=== PATIENT | male | born 1955 | race Caucasian/White ===

== ENCOUNTER 2019-05-27 06:46 | Emergency (ER) | payer OTHER, MEDICAID ==
[~2019-05-27] VITALS: Ht 167.6 cm; Wt 81.6 kg
--- NOTE | 2019-05-27 06:46 | NUR ---
Placed in room 4 . Placed on shrimp trawler, blood pressure machine and pulse oximeter. To gown for exam. Side rails up.
[2019-05-27 06:50] VITALS: BP_SYST 105
--- NOTE | 2019-05-27 06:50 | NUR ---
ER Dr. Meza at bedside examining patient.
--- NOTE | 2019-05-27 06:50 | NUR ---
BROUGHT IN BY AMBULANCE FROM A [facility] FOR LOW O2 SATURATION AND NO URINE OUTPUT. PLACED IN BED 4. PT.ALERT,NOT IN ACUTE DISTRESS. NO PAIN OR DISCOMFORT NOTED. BREAHING EQUAL AND UNLABORED. SAO2=94% ON 2 LPM O2 VIA NC. AT BEDSIDE TO EVALUATE PT.
[2019-05-27] MEDS ORDERED: NACL 0.9% 1,000 ML IV ONE (06:56)
--- NOTE | 2019-05-27 07:03 | NUR ---
X-ray tech at bedside as ordered by Dr. Meza. Patient tolerated the procedure well.
--- NOTE | 2019-05-27 07:10 | NUR ---
ENDORSED CARE TO KAM DUGGAN.
--- NOTE | 2019-05-27 07:20 | NUR ---
# 20 gauge angiocath placed to right wrist. Use of asceptic technique. Opsite placed over site. Blood return noted. Blood for lab drawn from site. Flushed with 10 cc of normal saline. No evidence of infiltration noted. Patient tolerated well.
--- NOTE | 2019-05-27 07:21 | NUR ---
Swabbed for MRSA. Dropped off at the lab.
--- NOTE | 2019-05-27 07:40 | NUR ---
# 16 FR In and Out catheter with use of sterile technique. Immediate return of 1000 ml clear dark yellow urine noted. Urine sample collected and sent to lab. Pt tolerated procedure well. Patient unable to toilet self.
--- NOTE | 2019-05-27 07:42 | NUR ---
MARTA Mathews at bedside examining patient.
--- NOTE | 2019-05-27 07:46 | NUR ---
Swabbed for Influenza as ordered by Dr. Mathews. Dropped off specimen at the lab.
[2019-05-27 07:53] LABS: BASOPHILS % (AUTO) 0.7 % (0.0-2.0); EOSINOPHILS # (AUTO) 0.2 K/uL (0.0-0.4); EOSINOPHILS % (AUTO) 2.8 % (0.0-4.0); HEMATOCRIT 36.2 % (36-54); LYMPHOCYTES # (AUTO) 1.4 K/uL (1.0-5.5); LYMPHOCYTES % (AUTO) 21.8 % (20.5-51.5); MEAN CORPUSCULAR HEMOGLOBIN 31 pg (27-31); MEAN CORPUSCULAR HGB CONC 33 % (32-36); MEAN CORPUSCULAR VOLUME 94 fL (79.0-98.0); MONOCYTES # (AUTO) 0.7 K/uL (0.0-1.0); MONOCYTES % (AUTO) 11.1 % (1.7-9.3); NEUTROPHILS # (AUTO) 3.9 K/uL (1.8-7.7); NEUTROPHILS % (AUTO) 63.6 % (40.0-70.0); PLATELET COUNT (AUTO) 316 K/uL (130-430); RED BLOOD CELL COUNT(AUTO) 3.85 MIL/uL (4.2-6.2); RED CELL DISTRIBUTION WIDTH 13.9 % (9.0-15.0); WHITE BLOOD COUNT (AUTO) 6.2 K/uL (4.8-10.8)
[2019-05-27 08:00] LABS: CALCIUM 8.9 mg/dL (8.4-11.0); CREATININE 1.53 mg/dL (0.55-1.30); POTASSIUM 4.3 mmol/L (3.5-5.1)
[2019-05-27 08:03] LABS: BILIRUBIN,URINE NEGATIVE (NEGATIVE); BLOOD, URINE 2+ (NEGATIVE); CLARITY/URINE CLEAR (CLEAR); COLOR,URINE YELLOW (YELLOW); GLUCOSE,URINE NEGATIVE (NEGATIVE); KETONES,URINE NEGATIVE (NEGATIVE); LEUKOCYTE ESTERASE ,URINE NEGATIVE (NEGATIVE); NITRITE, URINE NEGATIVE (NEGATIVE); PH,URINE 5.5 (5.0-8.0); PROTEIN URINE NEGATIVE (NEGATIVE); UROBILINOGEN,URINE 0.2 (0.2-1.0)
[2019-05-27 08:06] LABS: ALBUMIN 2.5 g/dL (3.4-4.8); TOTAL BILIRUBIN 0.8 mg/dL (0.0-1.0)
[2019-05-27] MEDS ORDERED: LORA-258 GT (08:14)
[2019-05-27] MEDS ORDERED: BENZ1TAB76 GT (08:14)
[2019-05-27] MEDS ORDERED: CARB1TAB21 GT (08:14)
[2019-05-27] MEDS ORDERED: AMIN30LI2 GT (08:14)
[2019-05-27] MEDS ORDERED: POLY17PO4 GT (08:14)
[2019-05-27] MEDS ORDERED: QUET200T GT (08:14)
[2019-05-27] MEDS ORDERED: IPRA4AER INH (08:14)
[2019-05-27] MEDS ORDERED: QUET50TA GT (08:14)
[2019-05-27] MEDS ORDERED: MULT-1016 GT (08:14)
[2019-05-27] MEDS ORDERED: IPRATROPIUM/ALBUTEROL SULFATE 3 ML AMPUL.NEB (DUONEB) INH ONE ×2 (08:15→09:45)
--- NOTE | 2019-05-27 08:17 | NUR ---
RT at bedside administering breathing treatment as ordered by Dr. Mathews. Patient tolerated the treatment well.
--- NOTE | 2019-05-27 08:46 | NUR ---
Patient is resting comfortably in bed, respirations even and unlabored. [employer] linux systems administrator at bedside.
[2019-05-27 08:54] LABS: BACTERIA,URINE MANY /HPF (None Seen); MUCUS,URINE 1+ /LPF (None Seen); RBC,URINE 20-50 /HPF (0-3)
[2019-05-27 08:55] LABS: URINE AMORPHOUS URATE 1+ /HPF (None Seen)
--- NOTE | 2019-05-27 09:34 | NUR ---
ER Dr. Mathews at bedside giving discharge instructions to the patient and the facility small business representative.
--- NOTE | 2019-05-27 09:39 | NUR ---
RT at bedside administering breathing treatment as ordered by Dr. Mathews. Patient tolerated the treatment well.
[2019-05-27] MEDS ORDERED: TAMSULOSIN HCL 0.4 MG CAP PO ONE (09:45)
--- NOTE | 2019-05-27 09:45 | NUR ---
Called pharmacy and spoke with chris regarding Flomax 0.4mg.
--- NOTE | 2019-05-27 10:03 | NUR ---
Administered Tamsulosin 0.4mg via GT as ordered by Dr. Mathews. Patient tolerated the medication well. See eMAR for details.
[2019-05-27 10:20] VITALS: BP_SYST 111
--- NOTE | 2019-05-27 10:21 | NUR ---
Patient and customer operations representative given written and verbal discharge instructions and verbalizes understanding. ER MD discussed with patient the results and treatment provided. Patient in stable condition. ID arm band removed. IV catheter removed intact and dressing applied, no active bleeding. Rx of Flomax given. Patient educated on pain management and to follow up with PMD. Pain Scale 0/10. Opportunity for questions provided and answered. Medication side effect fact sheet provided.
--- NOTE | 2019-05-29 16:47 | NUR ---
Nurse at [facility] notified of positive urine culture and susceptibility list.
== END 2019-05-27 10:21 | disposition home or self-care (01) ==
LOC: SED 06:46
DX: J44.9 Chronic obstructive pulmonary disease, unspecified (principal); R33.9 Retention of urine, unspecified; I10 Essential (primary) hypertension; F20.9 Schizophrenia, unspecified
CPT/HCPCS: 36415; 36600; 51701; 71045; 80053; 81000; 82803; 83605; 83880; 84484; 85025; 85730; 86710; 87040; 87086; 87186; 94640; 94760; 99284; J7030; J7620; 93005

== ENCOUNTER 2019-06-01 09:53 | Emergency (ER) | payer OTHER, MEDICAID ==
[~2019-06-01] VITALS: Ht 185.4 cm; Wt 106.6 kg
[~2019-06-01 09:53] MED LIST: AMIN30LI2 GT; BENZ1TAB76 GT; CARB1TAB21 GT; IPRA4AER INH; LORA-258 GT; MULT-1016 GT; POLY17PO4 GT; QUET200T GT; QUET50TA GT
[2019-06-01 11:02] VITALS: BP_SYST 95
--- NOTE | 2019-06-01 11:05 | NUR ---
Placed in room 05 . Placed on air sampling and monitoring, blood pressure machine and pulse oximeter. To gown for exam. Side rails up.
--- NOTE | 2019-06-01 11:08 | NUR ---
PATIENT PRESENTS TO THE ER WITH HX OF PARTIAL WITHDRAWING OF ANCHORED HERNANDEZ CATHETER TODAY WHILE DRESSING PATIENT; WITH A LARGE AMOUNT OF BLEEDING IN THE CATHETER BAG; NO OTHER TRAUMA, NO OTHER REMARKABLE S/S; PATIENT TO ER #5 AT 1049
--- NOTE | 2019-06-01 11:08 | NUR ---
ER Dr. Flores at bedside examining patient.
[2019-06-01] MEDS ORDERED: CRAN237L GT (11:16)
--- NOTE | 2019-06-01 11:30 | NUR ---
Patient brought in by caregiver for hematuria secondary to tobias catheter trauma. Per report, patient stood up and tried pulling tobias catheter out. Patient is confused and disoriented, with medical history of HTN, COPD, impulse control, Parkinsons, anxiety, aspiration pneumonia, and falls. No signs or symptoms of acute distress noted.
--- NOTE | 2019-06-01 11:58 | NUR ---
# 16 FR Tobias catheter with use of sterile technique. Immediate return of 50 cc bloody urine noted. Bedside drainage bag placed below level of bladder. Urine sample collected and sent to lab. Pt tolerated procedure well. Patient arrived with otbias in place, changed due to standard of practice prior to admission. Patient unable to toilet self.
[2019-06-01 14:02] LABS: BASOPHILS % (AUTO) 0.6 % (0.0-2.0); EOSINOPHILS # (AUTO) 0.1 K/uL (0.0-0.4); EOSINOPHILS % (AUTO) 1.8 % (0.0-4.0); HEMATOCRIT 36.8 % (36-54); HEMOGLOBIN 12.1 g/dL (14.0-18.0); LYMPHOCYTES # (AUTO) 1.1 K/uL (1.0-5.5); LYMPHOCYTES % (AUTO) 19.1 % (20.5-51.5); MEAN CORPUSCULAR HEMOGLOBIN 31 pg (27-31); MEAN CORPUSCULAR HGB CONC 33 % (32-36); MEAN CORPUSCULAR VOLUME 94 fL (79.0-98.0); MONOCYTES # (AUTO) 0.9 K/uL (0.0-1.0); MONOCYTES % (AUTO) 16.1 % (1.7-9.3); NEUTROPHILS # (AUTO) 3.6 K/uL (1.8-7.7); NEUTROPHILS % (AUTO) 62.4 % (40.0-70.0); PLATELET COUNT (AUTO) 278 K/uL (130-430); RED BLOOD CELL COUNT(AUTO) 3.94 MIL/uL (4.2-6.2); RED CELL DISTRIBUTION WIDTH 13.7 % (9.0-15.0); WHITE BLOOD COUNT (AUTO) 5.8 K/uL (4.8-10.8)
[2019-06-01 14:15] LABS: ALANINE AMINOTRANSFERASE 22 U/L (12-78); ALBUMIN 2.2 g/dL (3.4-4.8); ASPARTATE AMINOTRANSFERASE 17 U/L (10-37); CALCIUM 9.2 mg/dL (8.4-11.0); CHLORIDE 99 mmol/L (98-107); CREATININE 0.92 mg/dL (0.55-1.30); GLUCOSE 87 mg/dL (70-99); SODIUM SERUM 131 mmol/L (136-145); TOTAL BILIRUBIN 0.4 mg/dL (0.0-1.0); UREA NITROGEN, BLOOD 24 mg/dL (8-21)
[2019-06-01 14:17] LABS: ANION GAP < 3 (5-15); GFR AFRICAN AMERICAN 107 mL/min (>90)
[2019-06-01 16:15] VITALS: BP_SYST 105
--- NOTE | 2019-06-01 16:15 | NUR ---
Patient given written and verbal discharge instructions and verbalizes understanding. ER MD Dr. Flores discussed with patient the results and treatment provided. Patient in stable condition. ID arm band removed. IV catheter removed intact and dressing applied, no active bleeding. No Rx given. Patient's news library director educated on Coker catheter care and to follow up with PMD. Pain Scale 0/10. Opportunity for questions provided and answered. Medication side effect fact sheet provided.
== END 2019-06-01 16:15 | disposition home or self-care (01) ==
LOC: SED 09:53
DX: R31.0 Gross hematuria (principal); I10 Essential (primary) hypertension; J44.9 Chronic obstructive pulmonary disease, unspecified; F41.9 Anxiety disorder, unspecified; Z79.899 Other long term (current) drug therapy
CPT/HCPCS: 36415; 80053; 85025; 99283; J7030

== ENCOUNTER 2019-06-02 20:16 | Observation (INO) | payer OTHER, MEDICAID ==
[~2019-06-02] VITALS: Ht 182.9 cm; Wt 90.7 kg
[~2019-06-02 20:16] MED LIST changes: +CRAN237L GT
[2019-06-02 20:23] VITALS: BP_SYST 106
--- NOTE | 2019-06-02 20:23 | NUR ---
Patient to ER bed 3 to gown for evaluation. Side rails up.
--- NOTE | 2019-06-02 20:45 | NUR ---
Pt came to the ED for g-tube replacement from assisted living. AOx1 which is pts baseline. Per music assistant, g-tube was removed at 1400. Pt was seen 06/01/19 and dx with COPD and urinary retention. No other complaints/injuries noted. Will cont. to monitor.
--- NOTE | 2019-06-02 21:00 | NUR ---
ER at bedside examining patient.
--- NOTE | 2019-06-02 22:04 | NUR ---
Medication reconciliation completed with information provided by patients paperwork. Any prior medication reconciliation on file was reviewed and corrected.
--- NOTE | 2019-06-02 23:18 | NUR ---
[facility] [id number]
--- NOTE | 2019-06-03 00:22 | NUR ---
Pt resting comfortably in bed, no signs of acute distress. Will cont. to monitor.
--- NOTE | 2019-06-03 01:12 | NUR ---
Pt resting comfortably in bed, no signs of acute distress. Will cont. to monitor.
--- NOTE | 2019-06-03 02:08 | NUR ---
Patient will be admitted to care of Dr. Urbina. Admitted to MS unit. Will go to room 135. Belongings list completed. Complete and up to date summary report printed. SBAR report to be given at bedside with opportunity for questions.
--- NOTE | 2019-06-03 02:25 | NUR ---
Bright red blood noted on diaper from tobias placement. Pt came into ED with a [address] Removed tobias. CN with myself at bedside.
--- NOTE | 2019-06-03 02:30 | NUR ---
# 16 coude FR Tobias catheter with use of sterile technique. Immediate return of 50 cc straw urine noted. Bedside drainage bag placed below level of bladder. Urine sample collected and sent to lab. Pt tolerated procedure well. Patient arrived with tobias in place, changed due to standard of practice prior to admission. Patient unable to toilet self.
--- NOTE | 2019-06-03 03:34 | NUR ---
Spoke to Khadra in regards to code status. SHe states "pt is a [place]. She confirmed he is a full code."
--- NOTE | 2019-06-03 03:48 | NUR ---
ADMISSION NOTE Received patient from ER via [facility], received report from URBAN DOMÍNGUEZ. Patient admitted with diagnosis of GASTROINTESTINAL MALFUNCTION. Patient oriented to hospital routine, call light, toileting and safety precaution.
[2019-06-03 03:59] VITALS: BP_SYST 98
[2019-06-03] MEDS: D5/0.45 NS 1,000 ML IV SCH ×3 (04:15→23:00)
--- NOTE | 2019-06-03 04:33 | NUR ---
GI Consultation Paged Reason for consult: G-tube Malfunction Was consult called: Yes Person who was notified: Anjali Consulting Physician: Dr Escalona Director Dental Services Director Dental Services Specialty: Gastroenterology Ordered By: Dr Angelia Urbina
--- NOTE | 2019-06-03 05:20 | NUR ---
RN Rounds Patient is resting in bed, eyes closed, no signs of acute distress, even and unlabored breathing on room air, IV fluids infusing per MD order, patent/benign, Coker catheter draining to gravity. Safety and fall precautions in place, bed locked and in lowest position, bed alarm on, bed close to nursing station, three side rails up, call light with patient, will continue to monitor.
--- NOTE | 2019-06-03 06:59 | NUR ---
Closing Note Patient is resting in bed, awake, no signs of acute distress, even and unlabored breathing on room air, IV fluids infusing per MD order, patent/benign, Coker catheter draining to gravity. All safety and fall precautions in place, bed locked and in lowest position, bed alarm on, bed close to nursing station, three side rails up, call light with patient, will endorse care to dayshift RN.
[2019-06-03 08:00] VITALS: BP_SYST 115
[2019-06-03 13:30] VITALS: BP_SYST 109
[2019-06-03] MEDS ORDERED: CEFAZOLIN 1 GM IVPB PREMIX 50 ML IV ONE (13:30)
[2019-06-03] MEDS: MEPERIDINE HCL/PF 100 MG/ML AMP ONE ×2 (15:08→15:12)
[2019-06-03] MEDS: MIDAZOLAM HCL 5 MG/5 ML VIAL ONE ×3 (15:10→15:16)
[2019-06-03] MEDS ORDERED: PANTOPRAZOLE SODIUM 40 MG TAB GT ONE (15:30)
--- NOTE | 2019-06-03 16:00 | NUR ---
Mold Designer: met with pt. to conduct a DCPA. CRYPTOLOGICAL TECHNICIAN went to pts. room. Rn. Barbosa informed CRYPTOLOGICAL TECHNICIAN that pt. went to get a procedure done and is not in his room. She added, pt. is not lucid and will not be able to carry on a conversation. Pt. is a kinsey of the [facility] and is a [facility] client. CRYPTOLOGICAL TECHNICIAN called pts. brother listed on the facesheet, Clinton Braxton, who was able to fill in the blanks. CRYPTOLOGICAL TECHNICIAN was able to complete a DCPA. Brother is local and is able to check up on pt. He stated pt. will return to home in [place]. Brother also stated he is the DPOA, but does not have the paperwork at hand stating it may have been lost during the divorce. When asked about the need to ever access any mental health services, brothjavier Alonzo stated pt. has never had to do so. Pt just has a loss in his mond due to being mentally challenged. CRYPTOLOGICAL TECHNICIAN will remain available as needed.
--- NOTE | 2019-06-03 16:02 | NUR ---
Dietitian Recommendations * Consider Jevity 1.2 TF formula (continuous infusion) if/when medically appropriate LP, RD Please refer to Nutrition Assessment for details. Signed: 06/03/19 at 1603 by Gail OLVERA <Co-Signature Required> Co-Signed: 06/03/19 at [address] Addendum: 06/03/19 at 1603 by Gail OLVERA Amended: Links added.
[2019-06-03] MEDS ORDERED: ACETAMINOPHEN 325 MG TABLET GT PRN (17:15)
[2019-06-03] MEDS ORDERED: POLYETHYLENE GLYCOL 3350, 17 GM/ POWD.PACK GT SCH (17:15)
[2019-06-03] MEDS ORDERED: ONDANSETRON HCL 4 MG/2 ML VIAL IVP PRN (17:15)
[2019-06-03] MEDS ORDERED: HYDROcodone/ACETAMIN 10-325 MG TAB GT PRN (17:15)
[2019-06-03] MEDS ORDERED: HYDROcodone/ACETAMIN 5-325 MG TAB (NORCO/ VICODIN) GT PRN (17:15)
[2019-06-03 17:59] VITALS: BP_SYST 129
[2019-06-03] MEDS ORDERED: IPRATROPIUM/ALBUTEROL SULFATE 3 ML AMPUL.NEB (DUONEB) INH SCH (19:00)
--- NOTE | 2019-06-03 19:06 | NUR ---
late entry, patient taken to Gi Lab fr peg placement. Vss no acute cardiac or resp dsitress. Patient returned @ 1530. peg in place with abdominal binder in place cover g-tube. All in tact. patient alert no s&S of distress.
--- NOTE | 2019-06-03 19:30 | NUR ---
OPENING NOTES Pt and endorsement received from day shift nurse. Pt is resting in bed with both eyes closed, with visible chest rise and fall with non-labored breathing noted. Pt on IVF with D5,0.45NS at 100ml/hr and infusing well on right hand G20. Pt on tobias catheter with yellow urine noted in the bag and hanged below bladder level. No moaning or grimacing noted. No signs of acute distress or SOB noted. Safety precautions in place with 3 side rails up, wheels locked, bed alarm on and in lowest level. Call light with pt. Will continue to monitor.
[2019-06-03] MEDS ORDERED: NON-FORMULARY MEDICATION (Amino Acids/Protein Hydrolys (Pro-Stat Liquid) 30 ML) GT SCH (21:00)
[2019-06-03] MEDS ORDERED: CRANBERRY JUICE GT SCH (21:00)
[2019-06-03] MEDS ORDERED: [UNRECOGNIZED DRUG - OTHER] GT SCH (21:00)
[2019-06-03 21:09] VITALS: BP_SYST 129
[2019-06-03] MEDS ORDERED: NORMAL SALINE 5 ML DISP.SYRIN IVF SCH (22:00)
[2019-06-03 22:02] VITALS: BP_SYST 113
[2019-06-03] MEDS: QUEtiapine FUMARATE 25 MG TABLET GT SCH (22:03)
[2019-06-03] MEDS: BENZTROPINE MESYLATE 1 MG TABLET GT SCH (22:03)
[2019-06-03] MEDS: NORMAL SALINE 5 ML DISP.SYRIN IVF SCH (22:04)
[2019-06-03] MEDS: QUEtiapine FUMARATE 100 MG TABLET GT SCH (22:04)
--- NOTE | 2019-06-03 22:05 | NUR ---
MED PASS Assessed bowel sounds and is active upon auscultation. Residual is 0. All due meds given and pt tolerated well. Aspiration precaution maintained with head elevated at 45 degrees. Started tube feeding with Jevity 1.5ml at 50ml/hr as ordered. No complains of pain and no signs of acute distress noted. Encouraged to use call light when needed. Safety precautions in place and call light with pt. Will continue to monitor.
[2019-06-04 00:09] VITALS: BP_SYST 106
--- NOTE | 2019-06-04 00:30 | NUR ---
ROUNDS Pt is resting in bed with both eyes closed, with visible chest rise and fall with non-labored breathing noted. IVF and tube feeding are infusing well. No complains of pain and no signs of acute distress or SOB noted. Safety precautions in place and call light with pt. Will continue to monitor.
--- NOTE | 2019-06-04 03:35 | NUR ---
ROUNDS Pt is resting in bed with both eyes closed, with visible chest rise and fall with non-labored breathing noted. Pt is easily arousable. IVF and G-tube feeding are infusing well. No signs of acute distress or SOB noted. No needs at this time. Safety precautions in place and call light with pt. Will continue to monitor.
[2019-06-04] MEDS: D5/0.45 NS 1,000 ML IV SCH (03:42)
[2019-06-04] MEDS: NORMAL SALINE 5 ML DISP.SYRIN IVF SCH ×2 (05:01→13:26)
--- NOTE | 2019-06-04 06:19 | NUR ---
CLOSING NOTES Pt is resting in bed with both eyes closed, with visible chest rise and fall with non-labored breathing noted. IVF and G-tube feeding are infusing well. Kept tobias bag hanged below bladder level. No complains of pain at this time. No signs of acute distress or SOB noted. All needs attended throughout the shift. Safety precautions maintained with 3 side rails up, wheels locked, bed alarm on and in lowest level. Call light with pt. Will endorse to day shift nurse.
[2019-06-04 07:38] LABS: BASOPHILS % (AUTO) 0.7 % (0.0-2.0); EOSINOPHILS # (AUTO) 0.2 K/uL (0.0-0.4); EOSINOPHILS % (AUTO) 5.4 % (0.0-4.0); HEMATOCRIT 32.1 % (36-54); HEMOGLOBIN 10.6 g/dL (14.0-18.0); LYMPHOCYTES # (AUTO) 1.2 K/uL (1.0-5.5); LYMPHOCYTES % (AUTO) 27.2 % (20.5-51.5); MEAN CORPUSCULAR HEMOGLOBIN 31 pg (27-31); MEAN CORPUSCULAR HGB CONC 33 % (32-36); MEAN CORPUSCULAR VOLUME 94 fL (79.0-98.0); MONOCYTES # (AUTO) 0.8 K/uL (0.0-1.0); MONOCYTES % (AUTO) 17.4 % (1.7-9.3); NEUTROPHILS # (AUTO) 2.1 K/uL (1.8-7.7); NEUTROPHILS % (AUTO) 49.3 % (40.0-70.0); PLATELET COUNT (AUTO) 242 K/uL (130-430); RED BLOOD CELL COUNT(AUTO) 3.42 MIL/uL (4.2-6.2); RED CELL DISTRIBUTION WIDTH 13.7 % (9.0-15.0); WHITE BLOOD COUNT (AUTO) 4.3 K/uL (4.8-10.8)
[2019-06-04 08:00] VITALS: BP_SYST 95
--- NOTE | 2019-06-04 08:00 | NUR ---
Note Pt resting in bed with IV in right hand intact and patent infusing IVF's well. GT feedings infusing well - tubing intact and patent at this time. No needs noted. No SOB/resp distress or pain/discomfort noted at this time. Pt next to nurses' station for close observation for needs and care. Call light within reach.
[2019-06-04 08:03] LABS: CALCIUM 8.4 mg/dL (8.4-11.0); CREATININE 0.82 mg/dL (0.55-1.30); POTASSIUM 3.9 mmol/L (3.5-5.1)
[2019-06-04] MEDS ORDERED: CARBIDOPA/LEVODOPA 25/100 MG TABLET GT SCH (09:00)
[2019-06-04] MEDS ORDERED: LORazepam 1 MG TABLET GT SCH (09:00)
[2019-06-04] MEDS ORDERED: MULTIVITS,CA,MINERALS/IRON/FA 1 TABLET GT SCH (09:00)
[2019-06-04] MEDS ORDERED: PANTOPRAZOLE SODIUM 40 MG TAB GT SCH (09:00)
--- NOTE | 2019-06-04 09:00 | NUR ---
Note Dr Casper at bedside assessing pt at this time. Pt denies any needs at this time. Call light within reach.
[2019-06-04] MEDS: BENZTROPINE MESYLATE 1 MG TABLET GT SCH (09:02)
[2019-06-04] MEDS: QUEtiapine FUMARATE 100 MG TABLET GT SCH (09:03)
[2019-06-04] MEDS: QUEtiapine FUMARATE 25 MG TABLET GT SCH (09:04)
[2019-06-04 11:28] VITALS: BP_SYST 94
--- NOTE | 2019-06-04 12:30 | NUR ---
Note Pt resting in bed with HOB at 60' all shift. GT feedings infusing well. No needs noted at this time. Call light within reach.
[2019-06-04 13:57] VITALS: BP_SYST 101
--- NOTE | 2019-06-04 14:53 | NUR ---
SHELTER WAS CALLED, RE: INFORM PT'S ORDER TO RETURN TO THE FACILITY. SPOKE TO SIMONA. ARRANGED WITH [facility] TO TAKE PT BACK .TO [address], [place] [address]. THERAPEUTIC SALES SPECIALIST TIME IS 1600. SPOKE TO
--- NOTE | 2019-06-04 15:00 | NUR ---
Note Spoke to Kaylie POLLACK at [facility] - gave report and answered questions/concerns at 1440. [place] calling for ambulance for pickup.
[2019-06-04 15:25] VITALS: BP_SYST 100
--- NOTE | 2019-06-04 16:00 | NUR ---
Note Pt was dressed in orange gown and sheet. All belongings were packed in bag. Pt's IV in right hand was dc'd - site benign at this time. Pt has had his abdominal binder on at all shift. Coker catheter was emptied and still intact. Pt was checked on q1' and PRN all shift for needs and care. Pt stable. Pt has not been pulling or tugging on Coker catheter or IV tubing all shift. Staff checked side table and drawers for belongings. Call light within reach. Discharge packet ready and at nurses' station.
--- NOTE | 2019-06-04 16:20 | NUR ---
Note Report given to ambulance EMT and pt off the floor via gurney with all belongings, discharge paperwork and has abdominal binder on. Pt stable at this time. No pain/SOB noted all shift.
== END 2019-06-04 16:20 ==
LOC: SED 20:16 → SMU 06-03 02:43 → INTOOBSV 06-03 02:43 → SMU 06-03 03:01
PROVIDERS: ADMIT Preventive Medicine Preventive Medicine/Occupational Environmental Medicine; ATTEND Preventive Medicine Preventive Medicine/Occupational Environmental Medicine
DX: K94.23 Gastrostomy malfunction (principal); J44.9 Chronic obstructive pulmonary disease, unspecified; I10 Essential (primary) hypertension; F20.9 Schizophrenia, unspecified; F41.9 Anxiety disorder, unspecified; R13.10 Dysphagia, unspecified; R33.9 Retention of urine, unspecified; F79 Unspecified intellectual disabilities; G20 Parkinson's disease; D72.819 Decreased white blood cell count, unspecified; D64.9 Anemia, unspecified; R73.9 Hyperglycemia, unspecified; K22.10 Ulcer of esophagus without bleeding; K26.9 Duodenal ulcer, unspecified as acute or chronic, without hemorrhage or perforation; Z79.899 Other long term (current) drug therapy; K29.80 Duodenitis without bleeding
CPT/HCPCS: 36415; 43246; 51702; 80048; 85025; 87081; 88305; 88312; 88313; 94640; 94760; 96365; 99218; 99285; G0378 ×3; J0690; J2175; J2250; J7620; L8699

== ENCOUNTER 2019-10-10 00:01 | Inpatient (IN) | payer OTHER, MEDICAID, SELFPAY ==
[2019-10-10] VITALS (28 sets, daily range): BP systolic 94–154
[~2019-10-10] VITALS: Ht 177.8 cm; Wt 99.8 kg
[2019-10-10 00:55] LABS: CALCIUM 9.2 mg/dL (8.4-11.0); CREATININE 3.85 mg/dL (0.55-1.30); POTASSIUM 5.4 mmol/L (3.5-5.1)
[2019-10-10 00:59] LABS: HEMOGLOBIN 12.5 g/dL (14.0-18.0); MEAN CORPUSCULAR HEMOGLOBIN 30 pg (27-31); MEAN CORPUSCULAR HGB CONC 34 % (32-36); MEAN CORPUSCULAR VOLUME 87 fL (79.0-98.0); PLATELET COUNT (AUTO) 144 K/uL (130-430); RED BLOOD CELL COUNT(AUTO) 4.24 MIL/uL (4.2-6.2); RED CELL DISTRIBUTION WIDTH 15.5 % (9.0-15.0); WHITE BLOOD COUNT (AUTO) 9.8 K/uL (4.8-10.8)
[2019-10-10] MEDS ORDERED: ACETAMINOPHEN 650 MG SUPP.RECT RC ONE (01:00)
[2019-10-10 01:01] LABS: ALBUMIN 2.2 g/dL (3.4-4.8); TOTAL BILIRUBIN 0.4 mg/dL (0.0-1.0)
[2019-10-10 01:03] LABS: INR 1.1 (0.80-1.20); PROTHROMBIN TIME 10.6 SECS (9.5-12.5)
[2019-10-10 01:11] LABS: BILIRUBIN,URINE 1+ (NEGATIVE); CLARITY/URINE CLOUDY (CLEAR); COLOR,URINE RED (YELLOW); GLUCOSE,URINE TRACE (NEGATIVE); KETONES,URINE NEGATIVE (NEGATIVE); LEUKOCYTE ESTERASE ,URINE 2+ (NEGATIVE); NITRITE, URINE NEGATIVE (NEGATIVE); PH,URINE 8.5 (5.0-8.0); PROTEIN URINE NEGATIVE (NEGATIVE)
[2019-10-10 01:14] LABS: BLOOD, URINE 3+ (NEGATIVE)
[2019-10-10] MEDS ORDERED: NACL 0.9% 1,000 ML IV ONE ×4 (01:15→06:00)
[2019-10-10] MEDS ORDERED: PIPERACILLIN/TAZO 3.375 GM in NS 50 ML IV ONE (01:15)
[2019-10-10 01:36] LABS: BACTERIA,URINE MODERATE /HPF (None Seen); RBC,URINE >100 /HPF (0-3); WBC,URINE 20-50 /HPF (0-3)
[2019-10-10] MEDS ORDERED: PIPERACILLIN/TAZOBACTAM 3.375 GM/VIAL (ZOSYN) IV ONE (01:42)
[2019-10-10] MEDS ORDERED: SODIUM POLYSTYRENE SULFONATE 15 GM/60 ML UDBTL GT ONE (01:45)
[2019-10-10 01:47] LABS: BAND % (MANUAL) 36 % (0-6); BASOPHILS % (MANUAL) 0 % (0-2); EOSINOPHILS % (MANUAL) 0 % (0-7); LYMPHOCYTES % (MANUAL) 1 % (20-46); MONOCYTES % (MANUAL) 11 % (0-11)
[2019-10-10] MEDS ORDERED: VANCOMYCIN HCL 1,000 MG in NS 250 ML IV ONE (02:00)
[2019-10-10] MEDS ORDERED: VANCOMYCIN HCL 1000 MG/VIAL IV ONE (02:28)
[2019-10-10] MEDS ORDERED: ETOMIDATE 20 MG/ 10 ML VIAL (AMIDATE) IVP ONE (03:15)
[2019-10-10] MEDS ORDERED: ROCURONIUM BROMIDE 10 MG/ML (ZEMURON) IV ONE (03:15)
[2019-10-10] MEDS ORDERED: LACTULOSE 20 GM/30 ML UDC GT ONE (04:00)
[2019-10-10] MEDS ORDERED: PROPOFOL DRIP 100 ML IV ONE (04:00)
[2019-10-10] MEDS ORDERED: NOREPINEPHRINE BITARTRATE 4 MG in NS 246 ML IV ONE (04:15)
[2019-10-10] MEDS ORDERED: NOREPINEPHRINE 4 MG/4 ML VIAL IV ONE (04:33)
[2019-10-10] MEDS ORDERED: NOREPINEPHRINE BITARTRATE 4 MG in NS 246 ML IV PRN (06:00)
[2019-10-10] MEDS: PROPOFOL DRIP 100 ML IV PRN (06:35)
[2019-10-10] MEDS ORDERED: LORazepam 2 MG/ML VIAL IVP PRN (07:15)
[2019-10-10] MEDS ORDERED: ACETAMINOPHEN 325 MG TABLET PO PRN (07:15)
[2019-10-10 08:02] LABS: BASOPHILS # (AUTO) 0.1 K/uL (0.0-0.2); BASOPHILS % (AUTO) 0.5 % (0.0-2.0); HEMATOCRIT 32.3 % (36-54); HEMOGLOBIN 10.5 g/dL (14.0-18.0); LYMPHOCYTES # (AUTO) 0.5 K/uL (1.0-5.5); LYMPHOCYTES % (AUTO) 3.4 % (20.5-51.5); MEAN CORPUSCULAR HEMOGLOBIN 29 pg (27-31); MEAN CORPUSCULAR HGB CONC 32 % (32-36); MEAN CORPUSCULAR VOLUME 90 fL (79.0-98.0); MONOCYTES # (AUTO) 2.2 K/uL (0.0-1.0); MONOCYTES % (AUTO) 16.2 % (1.7-9.3); NEUTROPHILS % (AUTO) 79.9 % (40.0-70.0); PLATELET COUNT (AUTO) 122 K/uL (130-430); RED BLOOD CELL COUNT(AUTO) 3.59 MIL/uL (4.2-6.2); RED CELL DISTRIBUTION WIDTH 16.1 % (9.0-15.0); WHITE BLOOD COUNT (AUTO) 13.7 K/uL (4.8-10.8)
[2019-10-10] MEDS: NOREPINEPHRINE 4 MG/4 ML VIAL IV ONE ×2 (08:02→08:10)
[2019-10-10 08:15] LABS: PROTHROMBIN TIME 10.3 SECS (9.5-12.5)
[2019-10-10 08:20] LABS: ALBUMIN 1.6 g/dL (3.4-4.8); CREATININE 3.43 mg/dL (0.55-1.30); POTASSIUM 4.3 mmol/L (3.5-5.1); TOTAL BILIRUBIN 0.2 mg/dL (0.0-1.0)
[2019-10-10] MEDS: AZITHROMYCIN 500 MG in NS 250 ML IV SCH (09:00)
[2019-10-10] MEDS ORDERED: ENOXAPARIN SODIUM 40 MG/0.4 ML SYRINGE SUBCUT SCH (09:00)
[2019-10-10] MEDS: ENOXAPARIN SODIUM 30 MG/0.3 ML SYRINGE SUBCUT SCH (09:23)
[2019-10-10] MEDS: PIPERACILLIN/TAZO 3.375/DEX-IS 50 ML IV SCH ×3 (09:24→18:59)
[2019-10-10] MEDS: NACL 0.9% 1,000 ML IV SCH ×2 (09:25→15:08)
[2019-10-10] MEDS: FAMOTIDINE 20 MG TABLET PO SCH ×2 (09:25→20:01)
[2019-10-10] MEDS: NOREPINEPHRINE BITARTRATE 8 MG in D5W 242 ML IV PRN ×2 (11:31→19:03)
[2019-10-11] VITALS (35 sets, daily range): BP systolic 94–153
[2019-10-11] MEDS: PIPERACILLIN/TAZO 3.375/DEX-IS 50 ML IV SCH ×5 (00:47→23:08)
[2019-10-11] MEDS: NACL 0.9% 1,000 ML IV SCH ×4 (04:55→17:10)
[2019-10-11] MEDS: PROPOFOL DRIP 100 ML IV PRN (04:57)
[2019-10-11 06:50] LABS: BASOPHILS % (AUTO) 0.3 % (0.0-2.0); HEMATOCRIT 29.3 % (36-54); HEMOGLOBIN 9.7 g/dL (14.0-18.0); LYMPHOCYTES # (AUTO) 0.4 K/uL (1.0-5.5); LYMPHOCYTES % (AUTO) 4.4 % (20.5-51.5); MEAN CORPUSCULAR HEMOGLOBIN 29 pg (27-31); MEAN CORPUSCULAR HGB CONC 33 % (32-36); MEAN CORPUSCULAR VOLUME 88 fL (79.0-98.0); MONOCYTES # (AUTO) 1.4 K/uL (0.0-1.0); MONOCYTES % (AUTO) 17.4 % (1.7-9.3); NEUTROPHILS # (AUTO) 6.2 K/uL (1.8-7.7); NEUTROPHILS % (AUTO) 77.9 % (40.0-70.0); PLATELET COUNT (AUTO) 111 K/uL (130-430); RED BLOOD CELL COUNT(AUTO) 3.32 MIL/uL (4.2-6.2); RED CELL DISTRIBUTION WIDTH 15.4 % (9.0-15.0)
[2019-10-11 07:27] LABS: ALBUMIN 1.5 g/dL (3.4-4.8); CALCIUM 8.1 mg/dL (8.4-11.0); CREATININE 1.8 mg/dL (0.55-1.30); POTASSIUM 3.2 mmol/L (3.5-5.1); TOTAL BILIRUBIN 0.2 mg/dL (0.0-1.0)
[2019-10-11] MEDS: ENOXAPARIN SODIUM 30 MG/0.3 ML SYRINGE SUBCUT SCH (09:00)
[2019-10-11] MEDS: FAMOTIDINE 20 MG TABLET PO SCH ×2 (09:16→21:52)
[2019-10-11] MEDS: AZITHROMYCIN 500 MG in NS 250 ML IV SCH (09:16)
[2019-10-12] VITALS (36 sets, daily range): BP systolic 120–160
[2019-10-12] MEDS: NACL 0.9% 1,000 ML IV SCH ×2 (03:02→17:31)
[2019-10-12] MEDS: PIPERACILLIN/TAZO 3.375/DEX-IS 50 ML IV SCH ×3 (05:19→17:30)
[2019-10-12] MEDS: AZITHROMYCIN 500 MG in NS 250 ML IV SCH (09:29)
[2019-10-12] MEDS: FAMOTIDINE 20 MG TABLET PO SCH ×2 (09:30→21:26)
[2019-10-12] MEDS: ENOXAPARIN SODIUM 30 MG/0.3 ML SYRINGE SUBCUT SCH (09:31)
[2019-10-12 09:38] LABS: BASOPHILS % (AUTO) 0.6 % (0.0-2.0); EOSINOPHILS % (AUTO) 0.3 % (0.0-4.0); HEMATOCRIT 30.3 % (36-54); HEMOGLOBIN 10.1 g/dL (14.0-18.0); LYMPHOCYTES # (AUTO) 0.5 K/uL (1.0-5.5); LYMPHOCYTES % (AUTO) 14.1 % (20.5-51.5); MEAN CORPUSCULAR HEMOGLOBIN 29 pg (27-31); MEAN CORPUSCULAR HGB CONC 33 % (32-36); MEAN CORPUSCULAR VOLUME 88 fL (79.0-98.0); MONOCYTES # (AUTO) 0.7 K/uL (0.0-1.0); MONOCYTES % (AUTO) 18.7 % (1.7-9.3); NEUTROPHILS # (AUTO) 2.4 K/uL (1.8-7.7); NEUTROPHILS % (AUTO) 66.3 % (40.0-70.0); PLATELET COUNT (AUTO) 93 K/uL (130-430); RED BLOOD CELL COUNT(AUTO) 3.44 MIL/uL (4.2-6.2); RED CELL DISTRIBUTION WIDTH 15.8 % (9.0-15.0); WHITE BLOOD COUNT (AUTO) 3.6 K/uL (4.8-10.8)
[2019-10-12 09:53] LABS: ALANINE AMINOTRANSFERASE 23 U/L (12-78); ALBUMIN 1.4 g/dL (3.4-4.8); CALCIUM 8.7 mg/dL (8.4-11.0); CHLORIDE 109 mmol/L (98-107); GLUCOSE 102 mg/dL (70-99); POTASSIUM 3.3 mmol/L (3.5-5.1); SODIUM SERUM 142 mmol/L (136-145); TOTAL BILIRUBIN 0.3 mg/dL (0.0-1.0); UREA NITROGEN, BLOOD 37 mg/dL (8-21)
[2019-10-12 10:01] LABS: ANION GAP < 3 (5-15); ASPARTATE AMINOTRANSFERASE 30 U/L (10-37); GFR AFRICAN AMERICAN 78 mL/min (>90)
[2019-10-12] MEDS ORDERED: POTASSIUM CHLORIDE 20 MEQ/PKT PACKET GT ONE ×2 (12:30→16:30)
[2019-10-13] VITALS (34 sets, daily range): BP systolic 116–154
[2019-10-13] MEDS: PIPERACILLIN/TAZO 3.375/DEX-IS 50 ML IV SCH ×2 (00:21→05:36)
[2019-10-13] MEDS: AZITHROMYCIN 500 MG in NS 250 ML IV SCH (08:41)
[2019-10-13] MEDS: NACL 0.9% 1,000 ML IV SCH (08:41)
[2019-10-13] MEDS: FAMOTIDINE 20 MG TABLET PO SCH ×2 (08:42→21:25)
[2019-10-13] MEDS: ENOXAPARIN SODIUM 30 MG/0.3 ML SYRINGE SUBCUT SCH (08:43)
[2019-10-13] MEDS ORDERED: POTASSIUM CHLORIDE 20 MEQ/PKT PACKET GT ONE (11:15)
[2019-10-13] MEDS: MEROPENEM 500 MG in NS 50 ML IV SCH (21:25)
[2019-10-14] VITALS (33 sets, daily range): BP systolic 104–171
[2019-10-14] MEDS: NACL 0.9% 1,000 ML IV SCH ×3 (00:27→23:07)
[2019-10-14 05:56] LABS: BASOPHILS % (AUTO) 0.7 % (0.0-2.0); EOSINOPHILS # (AUTO) 0.1 K/uL (0.0-0.4); EOSINOPHILS % (AUTO) 1.6 % (0.0-4.0); HEMATOCRIT 30.2 % (36-54); HEMOGLOBIN 10.1 g/dL (14.0-18.0); LYMPHOCYTES # (AUTO) 0.8 K/uL (1.0-5.5); LYMPHOCYTES % (AUTO) 12.2 % (20.5-51.5); MEAN CORPUSCULAR HEMOGLOBIN 30 pg (27-31); MEAN CORPUSCULAR HGB CONC 34 % (32-36); MEAN CORPUSCULAR VOLUME 88 fL (79.0-98.0); MONOCYTES # (AUTO) 1.1 K/uL (0.0-1.0); MONOCYTES % (AUTO) 17.6 % (1.7-9.3); NEUTROPHILS # (AUTO) 4.2 K/uL (1.8-7.7); NEUTROPHILS % (AUTO) 67.9 % (40.0-70.0); PLATELET COUNT (AUTO) 139 K/uL (130-430); RED BLOOD CELL COUNT(AUTO) 3.43 MIL/uL (4.2-6.2); RED CELL DISTRIBUTION WIDTH 15.5 % (9.0-15.0); WHITE BLOOD COUNT (AUTO) 6.1 K/uL (4.8-10.8)
[2019-10-14 06:17] LABS: ALANINE AMINOTRANSFERASE 44 U/L (12-78); ALBUMIN 1.6 g/dL (3.4-4.8); ASPARTATE AMINOTRANSFERASE 47 U/L (10-37); CALCIUM 8.8 mg/dL (8.4-11.0); CHLORIDE 109 mmol/L (98-107); CREATININE 1.02 mg/dL (0.55-1.30); GLUCOSE 107 mg/dL (70-99); POTASSIUM 3.7 mmol/L (3.5-5.1); TOTAL BILIRUBIN 0.4 mg/dL (0.0-1.0); UREA NITROGEN, BLOOD 25 mg/dL (8-21)
[2019-10-14 07:21] LABS: SODIUM SERUM 142 mmol/L (136-145)
[2019-10-14 07:26] LABS: GFR AFRICAN AMERICAN 95 mL/min (>90)
[2019-10-14 07:28] LABS: ANION GAP < 3 (5-15)
[2019-10-14] MEDS: FAMOTIDINE 20 MG TABLET PO SCH ×2 (08:34→20:28)
[2019-10-14] MEDS: MEROPENEM 500 MG in NS 50 ML IV SCH ×2 (08:34→20:28)
[2019-10-14] MEDS: ENOXAPARIN SODIUM 30 MG/0.3 ML SYRINGE SUBCUT SCH (08:35)
[2019-10-15] VITALS (32 sets, daily range): BP systolic 99–150
[2019-10-15] MEDS: MEROPENEM 500 MG in NS 50 ML IV SCH ×2 (07:47→20:49)
[2019-10-15] MEDS: ENOXAPARIN SODIUM 30 MG/0.3 ML SYRINGE SUBCUT SCH (07:48)
[2019-10-15] MEDS: FAMOTIDINE 20 MG TABLET PO SCH ×2 (07:48→20:49)
[2019-10-15] MEDS ORDERED: MINERAL OIL 30 ML UDC GT ONE (12:30)
[2019-10-15] MEDS: NACL 0.9% 1,000 ML IV SCH (12:37)
[2019-10-16] VITALS (28 sets, daily range): BP systolic 107–143
[2019-10-16] MEDS: NACL 0.9% 1,000 ML IV SCH ×2 (01:25→15:31)
[2019-10-16] MEDS: ENOXAPARIN SODIUM 30 MG/0.3 ML SYRINGE SUBCUT SCH (08:12)
[2019-10-16] MEDS: FAMOTIDINE 20 MG TABLET PO SCH ×2 (08:12→20:40)
[2019-10-16] MEDS: MEROPENEM 500 MG in NS 50 ML IV SCH ×2 (08:13→20:40)
[2019-10-16 12:08] LABS: BASOPHILS % (AUTO) 0.7 % (0.0-2.0); CALCIUM 8.6 mg/dL (8.4-11.0); CREATININE 0.97 mg/dL (0.55-1.30); EOSINOPHILS # (AUTO) 0.4 K/uL (0.0-0.4); EOSINOPHILS % (AUTO) 5.8 % (0.0-4.0); HEMATOCRIT 30.2 % (36-54); HEMOGLOBIN 9.9 g/dL (14.0-18.0); LYMPHOCYTES # (AUTO) 1.1 K/uL (1.0-5.5); LYMPHOCYTES % (AUTO) 16.8 % (20.5-51.5); MEAN CORPUSCULAR HEMOGLOBIN 29 pg (27-31); MEAN CORPUSCULAR HGB CONC 33 % (32-36); MEAN CORPUSCULAR VOLUME 89 fL (79.0-98.0); MONOCYTES # (AUTO) 0.8 K/uL (0.0-1.0); MONOCYTES % (AUTO) 11.8 % (1.7-9.3); NEUTROPHILS # (AUTO) 4.2 K/uL (1.8-7.7); NEUTROPHILS % (AUTO) 64.9 % (40.0-70.0); PLATELET COUNT (AUTO) 274 K/uL (130-430); POTASSIUM 3.7 mmol/L (3.5-5.1); RED BLOOD CELL COUNT(AUTO) 3.41 MIL/uL (4.2-6.2); RED CELL DISTRIBUTION WIDTH 15.6 % (9.0-15.0); WHITE BLOOD COUNT (AUTO) 6.4 K/uL (4.8-10.8)
[2019-10-16] MEDS: IPRATROPIUM/ALBUTEROL SULFATE 3 ML AMPUL.NEB (DUONEB) INH SCH ×2 (19:00→22:30)
[2019-10-17] VITALS (24 sets, daily range): BP systolic 101–141
[2019-10-17] MEDS: IPRATROPIUM/ALBUTEROL SULFATE 3 ML AMPUL.NEB (DUONEB) INH SCH ×3 (03:00→23:00)
[2019-10-17] MEDS: NACL 0.9% 1,000 ML IV SCH ×2 (04:26→18:15)
[2019-10-17 06:30] LABS: BASOPHILS # (AUTO) 0.1 K/uL (0.0-0.2); BASOPHILS % (AUTO) 0.9 % (0.0-2.0); EOSINOPHILS # (AUTO) 0.2 K/uL (0.0-0.4); EOSINOPHILS % (AUTO) 2.8 % (0.0-4.0); HEMATOCRIT 30.6 % (36-54); HEMOGLOBIN 10.2 g/dL (14.0-18.0); LYMPHOCYTES # (AUTO) 0.9 K/uL (1.0-5.5); MEAN CORPUSCULAR HEMOGLOBIN 30 pg (27-31); MEAN CORPUSCULAR HGB CONC 33 % (32-36); MEAN CORPUSCULAR VOLUME 89 fL (79.0-98.0); MONOCYTES # (AUTO) 0.7 K/uL (0.0-1.0); MONOCYTES % (AUTO) 9.1 % (1.7-9.3); NEUTROPHILS # (AUTO) 6.2 K/uL (1.8-7.7); NEUTROPHILS % (AUTO) 76.2 % (40.0-70.0); PLATELET COUNT (AUTO) 330 K/uL (130-430); RED BLOOD CELL COUNT(AUTO) 3.45 MIL/uL (4.2-6.2); RED CELL DISTRIBUTION WIDTH 15.4 % (9.0-15.0); WHITE BLOOD COUNT (AUTO) 8.1 K/uL (4.8-10.8)
[2019-10-17 06:34] LABS: ALBUMIN 1.8 g/dL (3.4-4.8); CALCIUM 8.3 mg/dL (8.4-11.0); CREATININE 0.87 mg/dL (0.55-1.30); POTASSIUM 3.7 mmol/L (3.5-5.1); TOTAL BILIRUBIN 0.4 mg/dL (0.0-1.0)
[2019-10-17] MEDS: MEROPENEM 500 MG in NS 50 ML IV SCH (08:58)
[2019-10-17] MEDS: FAMOTIDINE 20 MG TABLET PO SCH ×2 (08:58→21:29)
[2019-10-17] MEDS: ENOXAPARIN SODIUM 30 MG/0.3 ML SYRINGE SUBCUT SCH (08:58)
[2019-10-17] MEDS: PIPERACILLIN/TAZO 2.25G/DEX-IS 50 ML IV SCH ×2 (14:22→21:29)
[2019-10-18] VITALS (17 sets, daily range): BP systolic 100–154
[2019-10-18] MEDS: IPRATROPIUM/ALBUTEROL SULFATE 3 ML AMPUL.NEB (DUONEB) INH SCH ×4 (03:15→23:13)
[2019-10-18] MEDS: PIPERACILLIN/TAZO 2.25G/DEX-IS 50 ML IV SCH ×3 (06:26→21:52)
[2019-10-18] MEDS ORDERED: FUROSEMIDE 20 MG/2 ML VIAL IVP ONE (08:30)
[2019-10-18] MEDS: ENOXAPARIN SODIUM 30 MG/0.3 ML SYRINGE SUBCUT SCH (09:54)
[2019-10-18] MEDS: NACL 0.9% 1,000 ML IV SCH (09:56)
[2019-10-18] MEDS: FAMOTIDINE 20 MG TABLET PO SCH ×2 (09:57→20:54)
[2019-10-19 00:02] VITALS: BP_SYST 121
[2019-10-19] MEDS: IPRATROPIUM/ALBUTEROL SULFATE 3 ML AMPUL.NEB (DUONEB) INH SCH ×6 (03:54→23:17)
[2019-10-19] MEDS: PIPERACILLIN/TAZO 2.25G/DEX-IS 50 ML IV SCH ×3 (06:10→21:31)
[2019-10-19 06:17] LABS: BASOPHILS # (AUTO) 0.1 K/uL (0.0-0.2); EOSINOPHILS # (AUTO) 0.4 K/uL (0.0-0.4); EOSINOPHILS % (AUTO) 4.2 % (0.0-4.0); HEMATOCRIT 31.3 % (36-54); HEMOGLOBIN 10.5 g/dL (14.0-18.0); LYMPHOCYTES # (AUTO) 1.2 K/uL (1.0-5.5); LYMPHOCYTES % (AUTO) 13.3 % (20.5-51.5); MEAN CORPUSCULAR HEMOGLOBIN 30 pg (27-31); MEAN CORPUSCULAR HGB CONC 34 % (32-36); MEAN CORPUSCULAR VOLUME 88 fL (79.0-98.0); MONOCYTES # (AUTO) 0.7 K/uL (0.0-1.0); NEUTROPHILS # (AUTO) 6.6 K/uL (1.8-7.7); NEUTROPHILS % (AUTO) 73.5 % (40.0-70.0); PLATELET COUNT (AUTO) 428 K/uL (130-430); RED BLOOD CELL COUNT(AUTO) 3.54 MIL/uL (4.2-6.2); RED CELL DISTRIBUTION WIDTH 15.5 % (9.0-15.0)
[2019-10-19] MEDS: NACL 0.9% 1,000 ML IV SCH ×2 (06:17→21:31)
[2019-10-19 06:25] LABS: ALBUMIN 1.9 g/dL (3.4-4.8); CALCIUM 8.6 mg/dL (8.4-11.0); CREATININE 0.88 mg/dL (0.55-1.30); POTASSIUM 3.8 mmol/L (3.5-5.1); TOTAL BILIRUBIN 0.6 mg/dL (0.0-1.0)
[2019-10-19 08:13] VITALS: BP_SYST 113; BP_SYST 156
[2019-10-19] MEDS: FAMOTIDINE 20 MG TABLET PO SCH ×2 (09:04→20:45)
[2019-10-19] MEDS: ENOXAPARIN SODIUM 30 MG/0.3 ML SYRINGE SUBCUT SCH (09:04)
[2019-10-19 11:31] VITALS: BP_SYST 101
[2019-10-19 15:59] VITALS: BP_SYST 113
[2019-10-19 19:20] VITALS: BP_SYST 118
[2019-10-20 00:27] VITALS: BP_SYST 111
[2019-10-20] MEDS: IPRATROPIUM/ALBUTEROL SULFATE 3 ML AMPUL.NEB (DUONEB) INH SCH ×6 (03:34→23:12)
[2019-10-20] MEDS: PIPERACILLIN/TAZO 2.25G/DEX-IS 50 ML IV SCH ×3 (05:00→21:06)
[2019-10-20] MEDS: FAMOTIDINE 20 MG TABLET PO SCH ×2 (09:09→20:57)
[2019-10-20] MEDS: ENOXAPARIN SODIUM 30 MG/0.3 ML SYRINGE SUBCUT SCH (09:09)
[2019-10-20 09:30] VITALS: BP_SYST 108
[2019-10-20 12:38] VITALS: BP_SYST 113
[2019-10-20 17:09] VITALS: BP_SYST 121
[2019-10-20 19:20] VITALS: BP_SYST 109
[2019-10-20] MEDS: NACL 0.9% 1,000 ML IV SCH (20:57)
[2019-10-21 01:12] VITALS: BP_SYST 114
[2019-10-21] MEDS: IPRATROPIUM/ALBUTEROL SULFATE 3 ML AMPUL.NEB (DUONEB) INH SCH ×4 (03:05→16:38)
[2019-10-21] MEDS: PIPERACILLIN/TAZO 2.25G/DEX-IS 50 ML IV SCH ×2 (06:14→13:04)
[2019-10-21] MEDS: FAMOTIDINE 20 MG TABLET PO SCH (07:58)
[2019-10-21] MEDS: ENOXAPARIN SODIUM 30 MG/0.3 ML SYRINGE SUBCUT SCH (07:59)
[2019-10-21 08:00] VITALS: BP_SYST 104
[2019-10-21 11:29] VITALS: BP_SYST 119
[2019-10-21 11:44] VITALS: BP_SYST 114
[2019-10-21] MEDS: NACL 0.9% 1,000 ML IV SCH (15:14)
[2019-10-21 15:55] VITALS: BP_SYST 114
== END 2019-10-21 18:55 | DRG 870 ==
LOC: SED 00:01 → EEVIPCON 04:48 → SIC 04:48 → STU 10-18 13:45
PROVIDERS: ADMIT Internal Medicine Hospice and Palliative Medicine; ATTEND Internal Medicine Hospice and Palliative Medicine
PROC: 5A1955Z Respiratory Ventilation, Greater than 96 Consecutive Hours (ICD-10-PCS; principal; 2019-10-10)
PROC: 0BH17EZ Insertion of Endotracheal Airway into Trachea, Via Natural or Artificial Opening (ICD-10-PCS; 2019-10-10)
PROC: 02HV33Z Insertion of Infusion Device into Superior Vena Cava, Percutaneous Approach (ICD-10-PCS; 2019-10-10)
PROC: B548ZZA Ultrasonography of Superior Vena Cava, Guidance (ICD-10-PCS; 2019-10-10)
DX: A41.59 Other Gram-negative sepsis (principal); E43 Unspecified severe protein-calorie malnutrition; J15.5 Pneumonia due to Escherichia coli; J69.0 Pneumonitis due to inhalation of food and vomit; J96.21 Acute and chronic respiratory failure with hypoxia; R65.21 Severe sepsis with septic shock; N17.0 Acute kidney failure with tubular necrosis; E87.1 Hypo-osmolality and hyponatremia; J44.0 Chronic obstructive pulmonary disease with (acute) lower respiratory infection; N13.6 Pyonephrosis; Z99.11 Dependence on respirator [ventilator] status; D69.6 Thrombocytopenia, unspecified; E66.3 Overweight; F20.9 Schizophrenia, unspecified; F79 Unspecified intellectual disabilities; E88.09 Other disorders of plasma-protein metabolism, not elsewhere classified; F41.9 Anxiety disorder, unspecified; I12.9 Hypertensive chronic kidney disease with stage 1 through stage 4 chronic kidney disease, or unspecified chronic kidney disease; E11.22 Type 2 diabetes mellitus with diabetic chronic kidney disease; N18.9 Chronic kidney disease, unspecified; G20 Parkinson's disease; K21.9 Gastro-esophageal reflux disease without esophagitis; K59.00 Constipation, unspecified; R31.0 Gross hematuria; Z93.1 Gastrostomy status; Z68.31 Body mass index [BMI] 31.0-31.9, adult; Z79.899 Other long term (current) drug therapy; Z03.818 Encounter for observation for suspected exposure to other biological agents ruled out
CPT/HCPCS: 36415; 36600; 71045; 80048; 80053; 81000-TC; 82803-TC; 83605; 83690-TC; 83880; 84484; 85007; 85025; 85027; 85610-TC; 85730-TC; 86710; 87040-TC; 87070-TC; 87081; 87086; 87186-TC; 87205-TC; 93005; 94002; 94003; 94640; 94760; 99291; 99292; C1751; J0456; J1650; J1940; J2060; J2185; J2543; J2704; J3370; J3490; J7030; J7050; J7060; U0003-CS